=== PATIENT | female | born 2000 | race Caucasian/White ===

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

== ENCOUNTER 2019-12-17 21:07 | Emergency (ER) | payer BC, SELFPAY ==
[2019-12-17 21:09] VITALS: BP 125/62; PULSE 83; RESP 18; TEMP 36.6; O2SAT 99; BMI 20.8
[2019-12-17] MEDS: 0.9% Normal Saline 1,000 ML 999 ML IV (21:51)
[2019-12-17] MEDS: proCHLORPERazine 10 MG/2 ML Vial 5 MG IV ×2 (21:51→22:59)
[2019-12-17] MEDS: Ketorolac 30 MG/ML Syringe IV (21:51)
--- NOTE | 2019-12-17 22:50 | ED.VIS.HA ---
History of Present Illness Chief Complaint: Headache Informant: Patient Onset: Yesterday Context: Gradual Timing: Continuous Quality: Similar Prior Headaches Location: bifrontal Current Severity: Moderate Maximum Severity: Moderate Worsened by: light, sounds Relieved by: not by OTC migraine meds Associated Symptoms: Nausea, Preceding Aura, Blurred Vision, Photophobia. Negative for: Fever, Vomiting, Sinus Pressure Injury: - - no injury, fever/illness Narrative: Patient with a longstanding history of migraines feels like she has another one. Commonly triggered by sleep deprivation which she has had recently. She took some [id number]-ycaxncp medications and cannot get it to go away and is asking for IV medications like she has had in the past. - Past Medical History (1) Migraines Status: Chronic Past Medical History - Allergies and Home Meds Allergies/Adverse Reactions: Allergies No Known Allergies Allergy (Verified 06/26/18 22:57) Primary Care Physician: Mk Cunningham,Out of [Primary Care Provider] - Smoking Status: Never smoker Review of Systems General: Denies: Chills, Fever, Sweats Eyes: Reports: Blurred Vision - bilaterally. Denies: Diplopia ENT: Denies: Bilateral ear pain, Rhinorrhea, Sore throat Cardiovascular: Denies: Chest pain, Palpitations Respiratory: Denies: Dyspnea, Cough Gastrointestinal: Reports: Nausea. Denies: Abdominal pain, Vomiting, Diarrhea, Melena, Hematochezia Skin: Denies: Rash, Abscess Neurological: Reports: Headache. Denies: Weakness, Numbness Physical Exam Vital Signs/Narrative: Vital Signs Temp Pulse Resp BP Pulse Ox 12/17/19 21:09 98 F 83 18 125/62 H 99 Inital Vital Signs reviewed: Yes General: Well nourished, Well developed, - - Appearing, conversive, NAD Head: NC, AT Eyes: Perrl, EOMI Neck: Supple, No Meningismus Skin: Normal color, No rash Neuro: Alert, Oriented x3, Cranial nerves II-XII grossly intact, Normal Strength, Normal Sensation, Normal Gait Psychological: Normal affect, Normal Mood Diagnostic/Tx/Re-eval - Medical Decision Making After IV Toradol, Reglan, and IV fluids, she is feeling much better her headache is 3/10 now. She would like another dose of Reglan since I only gave her half to start with to make sure she did not develop akathisia which she did not, and then be discharged home with her ride which I think is reasonable. ED Disposition - Plan for ED Patient: Disposition: Home or Assisted Living Diagnosis: Migraine headache with aura Instructions: ED, Migraine (Classical) Referrals: Town Doctor,Out of [Primary Care Provider] - As Needed
[2019-12-17 23:07] VITALS: BP 114/61; PULSE 69; RESP 16; O2SAT 99
--- NOTE | 2019-12-17 23:23 | ED.RN ---
PT A+OX4, GIVEN WRITTEN AND VERBAL DISCHARGE INSTRUCTIONS AND HOME GOING PAPERWORK. EDUCATED ON MIGRAINE CARE AT HOME, AND TO RETURN TO ED FOR ANY NEW OR WORSENED SX. PT VERBALIZES UNDERSTANDING AND DENIES ANY FURTHER QUESTIONS. IV D/C AND COVERED WITH 2X2 GAUZE AND PAPER TAPE. PT TO FOLLOW UP WITH OUT OF TOWN WHO MANAGES HER MIGRAINES.
== END 2019-12-17 23:25 | disposition home or self-care (01) ==
PROVIDERS: Emergency Provider Emergency Medicine
DX: G43.109 Migraine with aura, not intractable, without status migrainosus (principal)
CPT/HCPCS: 96361; 96374; 96375; 96376; 99283; J7030; A4216